=== PATIENT | female | born 1980 | race Caucasian/White ===

== ENCOUNTER 2016-03-09 11:50 | Emergency (ER) | payer MEDICAID, OTHER ==
--- NOTE | 2016-03-09 12:30 | ERRECORD ---
[facility] EMERGENCY RECORD HPI TOOTHACHE (12:08 WMEI) CHIEF COMPLAINT: Patient presents for evaluation of toothache, Patient presents for evaluation of jaw swelling. HISTORIAN: History provided by patient, r lower molar pain intermittent swelling worse this am 37 wks . LOCATION: Symptoms are localized. QUALITY: Pain is dull in nature, described as aching. TIME COURSE: Gradual onset of symptoms, 1, weeks ago. ASSOCIATED WITH: No associated chills, No associated fever. EXACERBATED BY: Patient's condition exacerbated by chewing. RELIEVED BY: Patient's condition relieved by over the counter medications. ROS (12:10 WMEI) CONSTITUTIONAL: Historian denies chills, denies fever. EYES: Historian denies eye pain, denies eye discharge. ENT: Historian denies otalgia, denies sore throat. CARDIOVASCULAR: Historian denies chest pain, no radiation. RESPIRATORY: Historian denies cough, denies shortness of breath. GI: Historian denies abdominal pain, denies nausea, denies vomiting. GENITOURINARY FEMALE: Historian denies dysuria, reports . MUSCULOSKELETAL: Historian denies joint redness, denies joint stiffness. SKIN: Historian denies skin changes, denies skin lesions. NEUROLOGIC: Historian denies confusion, denies lethargy, denies mental status changes. PSYCHIATRIC: Historian denies anxiety, denies depression. PAST MEDICAL HISTORY MEDICAL HISTORY: Notes: no PMH, Flu vaccine up to date, Tetanus not up to date, Pneumococcal vaccine not up to date. (11:58 CTUR) Notes: 37 wks no problems , Past medical history includes gynecologic history. (12:12 WMEI) FEMALE SURGICAL HISTORY: One csection. (11:58 CTUR) PSYCHIATRIC HISTORY: No previous psychiatric history, no previous emergency department psychiatric evaluations, Notes: denies all verified 03/09/16. (11:58 CTUR) SOCIAL HISTORY: Social History includes denies all verified 03/09/16, Patient denies alcohol use, Patient denies drug use, Patient has no smoking history. (11:58 CTUR) KNOWN ALLERGIES No Known Drug Allergies CURRENT MEDICATIONS (11:58 LGIB) None &a-1R&a+25V*p+0X*v2306Z*c202B*c15G*c2P*p-0X&a-25V&a+1R Name: Juan Antonio Ryan : 1980 F35 MedRec: [id number] AcctNum: [id number] Prepared: Alisson Mar 09, 2016 13:21 by Interface Page 1 of 3 pMD [facility] EMERGENCY RECORD VITAL SIGNS VITAL SIGNS: BP: 125/78, Pulse: 114, Resp: 18, Temp: 98.5 (Oral), Pain: 0, Time: 03/09/2016 11:52. (11:52 CTUR) O2 sat: 100 on Room Air, Time: 03/09/2016 11:57. (11:57 LGIB) PHYSICAL EXAM (12:10 WMEI) CONSTITUTIONAL: Patient afebrile. HEAD: Head exam included findings of head atraumatic, normocephalic. EYES: Conjunctiva normal, Sclera normal. ENT: Ear exam normal, Nose exam normal, Pharynx exam normal, Teeth with, dental caries, rlwer gum swelling about posterior molars. NECK: Neck exam included findings of normal range of motion, Trachea midline. RESPIRATORY CHEST: Breath sounds clear, Chest exam included findings of chest movement symmetrical. CARDIOVASCULAR: Cardiovascular exam included findings of heart rate regular rate and rhythm, Heart sounds normal. ABDOMEN FEMALE: Abdominal exam included findings of abdomen nontender, gravid full term. UPPER EXTREMITY: Upper extremity exam included findings of inspection normal, Range of motion normal, Motor strength normal. LOWER EXTREMITY: Lower extremity exam included findings of inspection normal, Range of motion normal, Motor strength normal. NEURO: Soren coma scale 15, Neuro exam findings include patient oriented to person, place and time, Speech normal, Gait normal. SKIN: Skin exam included findings of skin warm, dry, and normal in color. LYMPHATIC: Lymphatic exam normal. PSYCHIATRIC: Psychiatric exam included findings of patient oriented to person place and time, Normal affect, Judgment normal, Insight normal. PROBLEM LIST No recorded problems DIAGNOSIS (12:13 WMEI) FINAL: PRIMARY: Toothache. PRESCRIPTION (12:13 WMEI) PC Pen V K: TABLET : 500 mg : ORAL : Quantity: 1 Unit: tab(s) Route: ORAL Schedule: 4 times a day Dispense: 40 Unit: tab(s) May substitute. Refills: No Refills . NOTES: No refills. DISPOSITION PATIENT: Disposition Type: Discharge, Disposition: *Discharge Home. (12:13 WMEI) &a-1R&a+25V*p+0X*i2051K*c202B*c15G*c2P*p-0X&a-25V&a+1R Name: Juan Antonio Ryan : 1980 5 MedRec: [id number] AcctNum: [id number] Prepared: Alisson Mar 09, 2016 13:21 by Interface Page 2 of 3 pMD [facility] EMERGENCY RECORD Patient left the department. (12:20 LGIB) Andresw: CTUR=VALERIANO Suarez, Lucille LGIB=VALERIANO Arcos, Cindi WMEI=DO Ball William &a-1R&a+25V*p+0X*g5355V*c202B*c15G*c2P*p-0X&a-25V&a+1R Name: Juan Antonio Ryan : 1980 5 MedRec: [id number] AcctNum: [id number] Prepared: Alisson Mar 09, 2016 13:21 by Interface Page 3 of 3 pMD MTDD
--- NOTE | 2016-03-09 12:34 | PICIS ---
[facility] EMERGENCY RECORD TRIAGE ([place] Mar 09, 2016 11:55 CTUR) TRIAGE NOTES: Painful tooth since Thursday, pt reports pain intermittent and awoke this AM and noted swelling and increased pain. ([place] Mar 09, 2016 11:55 CTUR) PATIENT: KG WEIGHT: 86.6 (est.). (12:01 LGIB) NAME: Juan Antonio Ryan, AGE: 35, GENDER: female, : [place] 1980, TIME OF GREET: [place] Mar 09, 2016 11:51, PREFERRED LANGUAGE: Greek, ETHNICITY: Not or , ECODE BILLING MAP: [facility], SSN: [id number], Zip Code: [address], , , PERSON ID: [id number]. ([place] Mar 09, 2016 11:55 CTUR) PAYMENT: [place]. (12:03) PHONE: . (12:10) COMPLAINT: Dental abscess. ([place] Mar 09, 2016 11:55 CTUR) ADMISSION: URGENCY: 4 Non Urgent, ADMISSION SOURCE: Home, TRANSPORT: CAR, BED: TRIAGE. ([place] Mar 09, 2016 11:55 CTUR) SIRS SCORING: Heart Rate 110-139 (2), Temp range 96.8-101.1 (0), respiratory rate 12-24 (0), Mental Status altered: no (0), Total SIRS Score 2. (12:10 LGIB) TRIAGE SCREENING: Patient denies suicidal ideation, Patient denies presence of domestic violence. (11:58 CTUR) LMP: Estimated due date 04/03/16. (11:58 CTUR) PROVIDERS: TRIAGE NURSE: Lucille Suarez RN. ([place] Mar 09, 2016 11:55 CTUR) VITAL SIGNS: BP 125/78, Pulse 114, Resp 18, Temp 98.5, (Oral), Pain 0, Time 03/09/2016 11:52. (11:52 CTUR) KNOWN ALLERGIES No Known Drug Allergies CURRENT MEDICATIONS (11:58 LGIB) None VITAL SIGNS VITAL SIGNS: BP: 125/78, Pulse: 114, Resp: 18, Temp: 98.5 (Oral), Pain: 0, Time: 03/09/2016 11:52. (11:52 CTUR) O2 sat: 100 on Room Air, Time: 03/09/2016 11:57. (11:57 LGIB) NURSING ASSESSMENT: DENTAL (11:58 LGIB) CONSTITUTIONAL: Complex assessment performed, Patient arrives ambulatory, Gait steady, History obtained from patient, Patient appears comfortable, Patient cooperative, Patient alert, Oriented to person, place and time, Skin warm, Skin dry, Skin normal in color, Mucous membranes pink, Mucous membranes moist, Patient is well-groomed, Patient complains of dental abscess, pt noticed swelling this morning to right cheek. states she has multiple dental caries. PAIN: Patient rates pain as 0 out of 10. DENTAL: Dental assessment findings include mouth normal, Teeth abnormal:, dental caries, Associated &a-1R&a+25V*p+0X*w7310X*c202B*c15G*c2P*p-0X&a-25V&a+1R Name: Juan Antonio Ryan : 1980 F35 MedRec: [id number] AcctNum: [id number] Prepared: Alisson Mar 09, 2016 13:28 by Interface Page 1 of 4 pMD [facility] EMERGENCY RECORD with, swelling to the right jaw. SAFETY: Side rails up, Cart/Stretcher in lowest position, Family at bedside, Call light within reach, Hospital ID band on. NURSING PROCEDURE: DISCHARGE NOTE (12:19 LGIB) DISCHARGE: Patient discharged to home, ambulating without assistance, driving self, unaccompanied, Summary of Care printed/ provided, Patient requested and was provided an electronic copy of Discharge Instructions, Discharge instructions given to patient, Simple or moderate discharge teaching performed, Prescriptions given and instructions on side effects given, Above person(s) verbalized understanding of discharge instructions and follow-up care, Patient treated and evaluated by physician. BELONGINGS: Belongings and valuables with patient at time of discharge include:, Belongings remain with patient, Valuables remain with patient. HPI TOOTHACHE (12:08 WMEI) CHIEF COMPLAINT: Patient presents for evaluation of toothache, Patient presents for evaluation of jaw swelling. HISTORIAN: History provided by patient, r lower molar pain intermittent swelling worse this am 37 wks . LOCATION: Symptoms are localized. QUALITY: Pain is dull in nature, described as aching. TIME COURSE: Gradual onset of symptoms, 1, weeks ago. ASSOCIATED WITH: No associated chills, No associated fever. EXACERBATED BY: Patient's condition exacerbated by chewing. RELIEVED BY: Patient's condition relieved by over the counter medications. ROS (12:10 WMEI) CONSTITUTIONAL: Historian denies chills, denies fever. EYES: Historian denies eye pain, denies eye discharge. ENT: Historian denies otalgia, denies sore throat. CARDIOVASCULAR: Historian denies chest pain, no radiation. RESPIRATORY: Historian denies cough, denies shortness of breath. GI: Historian denies abdominal pain, denies nausea, denies vomiting. GENITOURINARY FEMALE: Historian denies dysuria, reports . MUSCULOSKELETAL: Historian denies joint redness, denies joint stiffness. SKIN: Historian denies skin changes, denies skin lesions. NEUROLOGIC: Historian denies confusion, denies lethargy, denies mental status changes. PSYCHIATRIC: Historian denies anxiety, denies depression. PAST MEDICAL HISTORY MEDICAL HISTORY: Notes: no PMH, Flu vaccine up to date, Tetanus not up to date, Pneumococcal vaccine not up to &a-1R&a+25V*p+0X*s7666J*c202B*c15G*c2P*p-0X&a-25V&a+1R Name: Juan Antonio Ryan : 1980 F35 MedRec: [id number] AcctNum: [id number] Prepared: Alisson Mar 09, 2016 13:28 by Interface Page 2 of 4 pMD [facility] EMERGENCY RECORD date. (11:58 CTUR) Notes: 37 wks no problems , Past medical history includes gynecologic history. (12:12 WMEI) FEMALE SURGICAL HISTORY: One csection. (11:58 CTUR) PSYCHIATRIC HISTORY: No previous psychiatric history, no previous emergency department psychiatric evaluations, Notes: denies all verified 03/09/16. (11:58 CTUR) SOCIAL HISTORY: Social History includes denies all verified 03/09/16, Patient denies alcohol use, Patient denies drug use, Patient has no smoking history. (11:58 CTUR) PHYSICAL EXAM (12:10 WMEI) CONSTITUTIONAL: Patient afebrile. HEAD: Head exam included findings of head atraumatic, normocephalic. EYES: Conjunctiva normal, Sclera normal. ENT: Ear exam normal, Nose exam normal, Pharynx exam normal, Teeth with, dental caries, rlwer gum swelling about posterior molars. NECK: Neck exam included findings of normal range of motion, Trachea midline. RESPIRATORY CHEST: Breath sounds clear, Chest exam included findings of chest movement symmetrical. CARDIOVASCULAR: Cardiovascular exam included findings of heart rate regular rate and rhythm, Heart sounds normal. ABDOMEN FEMALE: Abdominal exam included findings of abdomen nontender, gravid full term. UPPER EXTREMITY: Upper extremity exam included findings of inspection normal, Range of motion normal, Motor strength normal. LOWER EXTREMITY: Lower extremity exam included findings of inspection normal, Range of motion normal, Motor strength normal. NEURO: Soren coma scale 15, Neuro exam findings include patient oriented to person, place and time, Speech normal, Gait normal. SKIN: Skin exam included findings of skin warm, dry, and normal in color. LYMPHATIC: Lymphatic exam normal. PSYCHIATRIC: Psychiatric exam included findings of patient oriented to person place and time, Normal affect, Judgment normal, Insight normal. EVENTS TRANSFER: Triage to Emergency Triage. ([place] Mar 09, 2016 11:55 CTUR) Emergency Triage to Emergency Room -03. (11:56 CTUR) Removed from Emergency Emergency Room -03. (12:20 LGIB) PROBLEM LIST No recorded problems DIAGNOSIS (12:13 WMEI) &a-1R&a+25V*p+0X*e1098M*c202B*c15G*c2P*p-0X&a-25V&a+1R Name: Juan Antonio Ryan : 1980 F35 MedRec: [id number] AcctNum: [id number] Prepared: Alisson Mar 09, 2016 13:28 by Interface Page 3 of 4 pMD [facility] EMERGENCY RECORD FINAL: PRIMARY: Toothache. DISPOSITION PATIENT: Disposition Type: Discharge, Disposition: *Discharge Home. (12:13 WMEI) Patient left the department. (12:20 LGIB) INSTRUCTION (12:14 WMEI) DISCHARGE: ABSCESS DENTAL. SPECIAL: Follow-up with your PCP/dentist. PRESCRIPTION (12:13 WMEI) PC Pen V K: TABLET : 500 mg : ORAL : Quantity: 1 Unit: tab(s) Route: ORAL Schedule: 4 times a day Dispense: 40 Unit: tab(s) May substitute. Refills: No Refills . NOTES: No refills. IMAGING *DISCHARGE INSTRUCTIONS RECEIPT: Image captured from scanner. (12:17 LGIB) *SUPPLY CHARGE SHEET: Image captured from scanner. (12:18 LGIB) ADMIN (13:18 WMEI) DIGITAL SIGNATURE: DO Ball William. [place]: CTUR=VALERIANO Suarez, Lucille LGIB=VALERIANO Arcos, Cindi WMEI=DO Ball William &a-1R&a+25V*p+0X*h6450N*c202B*c15G*c2P*p-0X&a-25V&a+1R Name: Juan Antonio Ryan : 1980 F35 MedRec: [id number] AcctNum: [id number] Prepared: Alisson Mar 09, 2016 13:28 by Interface Page 4 of 4 pMD MTDD
== END 2016-03-09 12:17 | disposition home or self-care (01) ==
LOC: BURERS 11:50
DX: O99.613 Diseases of the digestive system complicating pregnancy, third trimester (principal); K08.89 Other specified disorders of teeth and supporting structures; Z3A.37 37 weeks gestation of pregnancy
CPT/HCPCS: 99283

== ENCOUNTER 2016-06-16 17:28 | Emergency (ER) | payer OTHER, SELFPAY ==
[2016-06-16 18:06] LABS: #Basophils 0.1 thou/uL (0.0-0.2); #Eosinphils 0.4 thou/uL (0.0-0.7); #Lymphocytes 2.1 thou/uL (1.20-3.40); #Monocytes 0.5 thou/uL (0.11-0.59); #Neutrophils 4.7 thou/uL (1.40-6.50); %Basophils 1.4 % (0.0-1.0); %Eosinophils 4.6 % (0.0-10.0); %Lymphocytes 26.9 % (21.0-51.0); %Neutrophils 61.2 % (42.0-75.0); Hemoglobin 15.5 g/dL (12.0-16.0); Mean Corpuscular HGB CONC 33.1 g/dL (32.0-36.0); Mean Corpuscular Hemoglobin 30.2 pg (27.0-31.0); Mean Corpuscular Volume 91.3 fl (81.0-99.0); Mean Platelet Volume 11.1 fL (7.4-10.4); Platelet Count 164 thou/uL (130-400); RBC Distribution Width 13.7 % (11.5-14.5); Red Blood Cell (RBC) Count 5.13 mill/uL (4.20-5.40); White Blood Cell (WBC) Count 7.7 thou/uL (4.8-10.8)
[2016-06-16 18:18] LABS: CKMB 0.8 ng/mL (0-6.6); Troponin I Less than 0.010 ng/mL (< 0.028)
[2016-06-16 18:19] LABS: Bilirubin Negative (Negative); Blood, Urine Trace (Negative); Clarity Clear (Clear); Glucose, Urine (Dipstick) Negative (Negative); Leukocyte Negative (Negative); Nitrite Negative (Negative); Protein, Urine (Dipstick) Negative (Neg-Trace)
[2016-06-16 18:22] LABS: ALT (SGPT) 24 U/L (0-55); AST (SGOT) 18 U/L (5-34); Albumin 4.8 g/dL (3.5-5.0); Alkaline Phosphatase 51 U/L (40-150); Anion Gap 14 mmol/L (10-20); BUN (Urea Nitrogen) 10 mg/dL (7.0-18.7); Bilirubin, Total 0.3 mg/dL (0.2-1.2); Calc. Creatinine Clearance 0 mL/min (70-130); Calcium 9.7 mg/dL (7.8-10.44); Carbon Dioxide 22 mmol/L (22-29); Chloride 108 mmol/L (98-107); Estimated GFR-MDRD 80; Globulin 3.2 g/dL (2.4-3.5); Glucose 93 mg/dL (70-105); Potassium 3.8 mmol/L (3.5-5.1); Sodium 140 mmol/L (136-145)
[2016-06-16 18:22] LABS: Pregnancy Test - Urine (BHCG) NEGATIVE (NEGATIVE)
[2016-06-16 18:23] LABS: Pregu Control Bar Appear? YES (CONTROL BAR)
[2016-06-16 18:27] LABS: Amphetamine Not Detected (NotDetected); Barbiturates Screen Not Detected (NotDetected); Benzodiazepine Screen Not Detected (NotDetected); Cocaine Metabolite Screen Not Detected (NotDetected); Medtox Control Line Valid? VALID (VALID); Methadone Not Detected (NotDetected); Methamphetamine Not Detected (NotDetected); Opiate Screen Not Detected (NotDetected); Oxycodone Screen Not Detected (NotDetected); Phencyclidine (PCP) Not Detected (NotDetected); THC/Cannabinoid Screen Not Detected (NotDetected); Tricyclic Screen Detected (NotDetected)
[2016-06-16 18:43] LABS: Bacteria/HPF None Seen HPF (None Seen); RBC/HPF 0-3 HPF (0-3); Squamous Epithelial 0-3 HPF (0-3); WBC/HPF None Seen HPF (0-3)
[2016-06-16] MEDS ORDERED: predniSONE 20 MG TAB ONE (19:34)
--- NOTE | 2016-06-16 21:33 | RAD ---
CHEST TWO VIEWS: Date: 06-16-16 FINDINGS: The heart is normal in size and the lungs are clear. No infiltrate or effusion was seen. There is no sign of pneumonia, pneumothorax or other causes of chest pain. The ribs appear intact. The mediasti num appears normal. IMPRESSION: No acute findings. POS: HOME
== END 2016-06-16 19:59 | disposition home or self-care (01) ==
LOC: BURERS 17:28
DX: M54.12 Radiculopathy, cervical region (principal)
CPT/HCPCS: 71020; 80053; 80306; 81003; 81015; 81025; 82553; 83690; 84484; 85025; 85379; 93005; 94760; J7506

== ENCOUNTER 2020-10-22 10:19 | Emergency (ER) | payer SELFPAY ==
[2020-10-22 11:15] LABS: #Basophils 0.1 thou/uL (0.0-0.2); #Eosinphils 0.1 thou/uL (0.0-0.7); #Lymphocytes 1.3 thou/uL (1.20-3.40); #Monocytes 0.5 thou/uL (0.11-0.59); #Neutrophils 8.2 thou/uL (1.40-6.50); %Eosinophils 0.8 % (0.0-10.0); %Monocytes 4.7 % (0.0-10.0); %Neutrophils 80.6 % (42.0-75.0); Hemoglobin 15.6 g/dL (12.0-16.0); Mean Corpuscular HGB CONC 33.8 g/dL (32.0-36.0); Mean Corpuscular Hemoglobin 30.7 pg (27.0-31.0); Mean Corpuscular Volume 90.9 fL (78.0-98.0); Mean Platelet Volume 10.2 fL (7.4-10.4); Platelet Count 166 thou/uL (130-400); RBC Distribution Width 11.5 % (11.5-14.5); Red Blood Cell (RBC) Count 5.07 mill/uL (4.20-5.40); White Blood Cell (WBC) Count 10.2 thou/uL (4.8-10.8)
[2020-10-22] MEDS ORDERED: Meclizine HCl 25 MG TAB ONE (11:25)
[2020-10-22 11:30] LABS: ALT (SGPT) 10 U/L (8-55); AST (SGOT) 12 U/L (5-34); Albumin 4.5 g/dL (3.5-5.0); Alkaline Phosphatase 44 U/L (40-110); Anion Gap 13 mmol/L (10-20); BUN (Urea Nitrogen) 8 mg/dL (7.0-18.7); Bilirubin, Total 0.4 mg/dL (0.2-1.2); Calc. Creatinine Clearance 0 mL/min (70-130); Calcium 9.6 mg/dL (7.8-10.44); Carbon Dioxide 23 mmol/L (22-29); Chloride 109 mmol/L (98-107); Globulin 2.8 g/dL (2.4-3.5); Glucose 103 mg/dL (70-105); Potassium 3.8 mmol/L (3.5-5.1); Protein, Total 7.3 g/dL (6.0-8.3); Sodium 141 mmol/L (136-145)
[2020-10-22] MEDS ORDERED: Dexamethasone 4 MG TAB ONE (11:58)
== END 2020-10-22 11:59 | disposition home or self-care (01) ==
LOC: BURERS 10:19
DX: R42 Dizziness and giddiness (principal)
CPT/HCPCS: 36415; 80053; 85025; 93005; J8540